=== PATIENT | female | born 1950 | race Caucasian/White ===

== ENCOUNTER 2018-08-09 13:51 | Observation (INO) | payer MEDICARE, OTHER ==
[2018-08-09] MEDS ORDERED: Sodium Chloride 0.9% 2.5 ML Syringe FLUSH PRN (14:05)
[2018-08-09] MEDS ORDERED: Sodium Chloride 0.9% 1,000 ML IV ONE (14:05)
[2018-08-09] MEDS ORDERED: Sodium Chloride 0.9% 10 ML Syringe FLUSH PRN (14:05)
[2018-08-09] MEDS ORDERED: Ondansetron 4 MG/2 ML SDV IVPUSH ONE (14:35)
--- NOTE | 2018-08-09 14:35 | EDM.PDOC ---
ED HPI GENERAL MEDICAL PROBLEM - General Chief Complaint: Gastrointestinal Problem Stated Complaint: VOMITING, DIARRHEA SINCE THIS AM Time Seen by Provider: 08/09/18 14:04 - History of Present Illness INITIAL COMMENTS - FREE TEXT/NARRATIVE: HISTORY AND PHYSICAL: History of present illness: Patient 68-year-old white female past medical history who is 5 days status post finishing a course of Augmentin for sinus infection presents now with uncontrollable vomiting and diarrhea 2 days no fever no chills she denies chest or abdominal pain. Review of systems: As per history of present illness and below otherwise all systems reviewed and negative. Past medical history: As per history of present illness and as reviewed below otherwise noncontributory. Surgical history: As per history of present illness and as reviewed below otherwise noncontributory. Social history: No reported history of drug or alcohol abuse. Family history: As per history of present illness and as reviewed below otherwise noncontributory. Physical exam: HEENT: Atraumatic, normocephalic, pupils reactive, negative for conjunctival pallor or scleral icterus, mucous membranes dry, throat clear, neck supple, nontender, trachea midline. Lungs: Clear to auscultation, breath sounds equal bilaterally, chest nontender. Heart: S1S2, regular, negative for clicks, rubs, or JVD. Abdomen: Soft, nondistended, no localized tenderness. Negative for masses or hepatosplenomegaly. Negative for costovertebral tenderness. Pelvis: Stable nontender. Genitourinary: Deferred. Rectal: Deferred. Extremities: Atraumatic, negative for cords or calf pain. Neurovascular unremarkable. Neuro: Awake, alert, oriented. Cranial nerves II through XII unremarkable. Cerebellum unremarkable. Motor and sensory unremarkable throughout. Exam nonfocal. Diagnostics: CBC CMP chest x-ray EKG UA stool for C&S O&P and C. difficile Therapeutics: Saline 1 L bolus Impression: 1 gastroenteritis with dehydration Definitive disposition and diagnosis as appropriate pending reevaluation and review of above. Abdomen Pain Score (Numeric/FACES): 7 - Related Data Allergies Allergy/AdvReac Type Severity Reaction Status Date / Time codeine Allergy Nausea Verified 08/09/18 14:08 Home Meds: Home Meds Calcium Carbonate/Vitamin D3 [Calcium 500 + Vit D 400] 1 tab PO DAILY 08/09/18 [ History] Cholecalciferol (Vitamin D3) [Vitamin D3] 1 tab PO DAILY 08/09/18 [History] Levothyroxine 1 tab PO DAILY 08/09/18 [History] Omeprazole 1 tab PO DAILY 08/09/18 [History] Rosuvastatin [Crestor] 10 mg PO DAILY 08/09/18 [History] Tamoxifen Citrate 20 mg PO DAILY 08/09/18 [History] Past Medical History Cardiovascular History: Reports: High Cholesterol Gastrointestinal History: Reports: GERD Endocrine/Metabolic History: Reports: Hypothyroidism Oncologic (Cancer) History: Reports: Breast, Leukemia - Infectious Disease History Infectious Disease History: Reports: Chicken Pox, Measles, Mumps Social & Family History - Tobacco Use Smoking Status *Q: Never Smoker - Caffeine Use Caffeine Use: Reports: Coffee - Recreational Drug Use Recreational Drug Use: No ED ROS GENERAL - Review of Systems Review Of Systems: ROS reveals no pertinent complaints other than HPI. ED EXAM, GENERAL - Physical Exam Exam: See Below (dictation) Course - Vital Signs Last Recorded V/S: Last Vital Signs Temp 35.5 C 08/09/18 14:03 Pulse 82 08/09/18 14:03 Resp 16 08/09/18 14:03 BP 128/80 08/09/18 14:03 Pulse Ox 96 08/09/18 14:03 - Orders/Labs/Meds Orders: Active Orders 24 hr Category Date Time Status EKG Documentation Completion [RC] STAT Care 08/09/18 14:05 Active Fecal Occult Blood Collection [RC] ASDIRECTED Care 08/09/18 14:04 Active CULTURE STOOL + CAMPY+SHIGATOX [RM] Stat Lab 08/09/18 14:34 Results UA RFX XIOMARA AND CULT IF INDIC [URIN] Stat Lab 08/09/18 14:04 Ordered Sodium Chloride 0.9% [Saline Flush] Med 08/09/18 14:05 Active 10 ml FLUSH ASDIRECTED PRN Sodium Chloride 0.9% [Saline Flush] Med 08/09/18 14:05 Active 2.5 ml FLUSH ASDIRECTED PRN Isolation [COMM] Stat Oth 08/09/18 14:05 Ordered Saline Lock Insert [OM.PC] Stat Oth 08/09/18 14:04 Ordered Medication Orders Sodium Chloride (Saline Flush) 10 ml FLUSH ASDIRECTED PRN PRN Reason: Keep Vein Open Last Admin: 08/09/18 14:30 Dose: 10 ml Sodium Chloride (Saline Flush) 2.5 ml FLUSH ASDIRECTED PRN PRN Reason: Keep Vein Open Last Admin: 08/09/18 14:31 Dose: 2.5 ml Labs: Laboratory Tests 08/09/18 08/09/18 Range/Units 14:14 14:14 WBC 12.16 H (4.0-11.0) K/uL RBC 4.45 (4.30-5.90) M/uL Hgb 13.5 (12.0-16.0) g/dL Hct 40.8 (36.0-46.0) % MCV 91.7 (80.0-98.0) fL MCH 30.3 (27.0-32.0) pg MCHC 33.1 (31.0-37.0) g/dL RDW Std Deviation 42.6 (28.0-62.0) fl RDW Coeff of Todd 13 (11.0-15.0) % Plt Count 226 (150-400) K/uL MPV 9.70 (7.40-12.00) fL Neut % (Auto) 86.8 H (48.0-80.0) % Lymph % (Auto) 5.9 L (16.0-40.0) % [place] % (Auto) 7.0 (0.0-15.0) % Eos % (Auto) 0.1 (0.0-7.0) % Baso % (Auto) 0.2 (0.0-1.5) % Neut # (Auto) 10.6 H (1.4-5.7) K/uL Lymph # (Auto) 0.7 (0.6-2.4) K/uL [place] # (Auto) 0.9 H (0.0-0.8) K/uL Eos # (Auto) 0.0 (0.0-0.7) K/uL Baso # (Auto) 0.0 (0.0-0.1) K/uL Nucleated RBC % 0.0 /100WBC Nucleated RBCs # 0 K/uL Sodium 141 (136-145) mmol/L Potassium 4.2 (3.5-5.1) mmol/L Chloride 104 (98-107) mmol/L Carbon Dioxide 24.2 (21.0-32.0) mmol/L BUN 21 H (7.0-18.0) mg/dL Creatinine 0.8 (0.6-1.0) mg/dL Est Cr Clr Drug Dosing 57.22 mL/min Estimated GFR (MDRD) > 60.0 ml/min Glucose 146 H (74-106) mg/dL Calcium 8.6 (8.5-10.1) mg/dL Total Bilirubin 0.4 (0.2-1.0) mg/dL AST 25 (15-37) IU/L ALT 28 (14-63) IU/L Alkaline Phosphatase 64 (46-116) U/L Total Protein 7.5 (6.4-8.2) g/dL Albumin 3.9 (3.4-5.0) g/dL Globulin 3.6 (2.6-4.0) g/dL Albumin/Globulin Ratio 1.1 (0.9-1.6) Meds: Medications Generic Name Dose Route Start Last Admin Trade Name Nellie PRN Reason Stop Dose Admin Sodium Chloride 10 ml 08/09/18 14:05 08/09/18 14:30 Saline Flush FLUSH 10 ml ASDIRECTED PRN Administration Keep Vein Open Sodium Chloride 2.5 ml 08/09/18 14:05 08/09/18 14:31 Saline Flush FLUSH 2.5 ml ASDIRECTED PRN Administration Keep Vein Open Discontinued Medications Generic Name Dose Route Start Last Admin Trade Name Nellie PRN Reason Stop Dose Admin Sodium Chloride 1,000 mls @ 999 mls/hr 08/09/18 14:05 08/09/18 14:31 Normal Saline IV 08/09/18 15:05 999 mls/hr STAT ONE Administration Ondansetron HCl 4 mg 08/09/18 14:35 08/09/18 14:48 Zofran IVPUSH 08/09/18 14:36 4 mg ONETIME ONE Administration Departure - Departure Time of Disposition: 15:25 Disposition: Refer to Observation Condition: Good Clinical Impression: Gastroenteritis, Dehydration - Discharge Information Referrals: PCP,None [Primary Care Provider] - Forms: ED Department Discharge - My Orders Last 24 Hours: My Active Orders 08/09/18 14:04 Fecal Occult Blood Collection [RC] ASDIRECTED UA RFX XIOMARA AND CULT IF INDIC [URIN] Stat Saline Lock Insert [OM.PC] Stat 08/09/18 14:05 EKG Documentation Completion [RC] STAT Sodium Chloride 0.9% [Saline Flush] 10 ml FLUSH ASDIRECTED PRN Sodium Chloride 0.9% [Saline Flush] 2.5 ml FLUSH ASDIRECTED PRN Isolation [COMM] Stat 08/09/18 14:34 CULTURE STOOL + CAMPY+SHIGATOX [RM] Stat - Assessment/Plan Last 24 Hours: My Active Orders 08/09/18 14:04 Fecal Occult Blood Collection [RC] ASDIRECTED UA RFX XIOMARA AND CULT IF INDIC [URIN] Stat Saline Lock Insert [OM.PC] Stat 08/09/18 14:05 EKG Documentation Completion [RC] STAT Sodium Chloride 0.9% [Saline Flush] 10 ml FLUSH ASDIRECTED PRN Sodium Chloride 0.9% [Saline Flush] 2.5 ml FLUSH ASDIRECTED PRN Isolation [COMM] Stat 08/09/18 14:34 CULTURE STOOL + CAMPY+SHIGATOX [RM] Stat
[2018-08-09 14:43] LABS: CHLORIDE,CL 104 mmol/L (98-107); SODIUM,NA 141 mmol/L (136-145)
--- NOTE | 2018-08-09 14:47 | CR ---
INDICATION: Pt w/dyspnea, vomiting, and diarrhea. COMPARISON: None. FINDINGS: Single portable AP view of the chest demonstrates adequate inflation of the lungs. There are few patchy densities at the left lung base, most likely atelectasis. No focal airspace consolidation, pneumothorax or effusion. Cardiomediastinal silhouette is unremarkable for an AP view. Surgical clips in the right axilla and breast. No acute osseous findings. IMPRESSION: Negative AP view of the chest. No acute findings. Dictated by Simone Baron MD @ 08/09/2018 2:45:23 PM Dictated by: Simone Baron MD @ 08/09/2018 14:45:53 (Electronically Signed)
[2018-08-09] MEDS ORDERED: Ondansetron 4 MG/2 ML SDV IVPUSH PRN (17:08)
[2018-08-09] MEDS: Sodium Chloride 0.9% 1,000 ML IV SCH (17:32)
[2018-08-09] MEDS: Rosuvastatin 10 MG Tab PO SCH (22:43)
[2018-08-09] MEDS: Calcium Carbonate/Vitamin D3 1500 MG-400 Units Tab PO SCH (22:43)
--- NOTE | 2018-08-09 23:08 | PCM.HP ---
H&P History of Present Illness - General Date of Service: 08/09/18 Admit Problem/Dx: Admission Diagnosis/Problem Admission Diagnosis/Problem Gastroenteritis - History of Present Illness Initial Comments - Free Text/Narative: 68 yo female who presents with two day history of nausea, vomiting and diarrhea. Patient reports multiple loose stools a day. She reports abdominal pain 4/10. She denies any fever or blood in her stool. She denies any sick contacts or eating anything unusual. She finished a course of Augment 5 days ago for sinusitis. Patient reports taking Advil for shoulder and rib pain. Abdomen Pain Score (Numeric/FACES): 6 - Related Data Allergies/Adverse Reactions: Allergies Allergy/AdvReac Type Severity Reaction Status Date / Time codeine Allergy Nausea Verified 08/09/18 14:08 Home Medications: Home Meds Calcium Carbonate/Vitamin D3 [Calcium 500 + Vit D 400] 1 tab PO TIDMEALS [History] Cholecalciferol (Vitamin D3) [Vitamin D3] 1 tab PO DAILY 08/09/18 [History] Levothyroxine 1 tab PO DAILY 08/09/18 [History] Omeprazole 1 tab PO DAILY 08/09/18 [History] Rosuvastatin [Crestor] 10 mg PO DAILY 08/09/18 [History] Tamoxifen Citrate 20 mg PO DAILY 08/09/18 [History] Past Medical History HEENT History: Reports: Sinusitis Cardiovascular History: Reports: High Cholesterol Gastrointestinal History: Reports: Chronic Constipation, GERD, Other (See Below) Other Gastrointestinal History: currently having nausea and diarrhea Genitourinary History: Reports: Urinary Incontinence Musculoskeletal History: Reports: Other (See Below) Other Musculoskeletal History: fractured rib over right side from June 2018 Endocrine/Metabolic History: Reports: Hypothyroidism Hematologic History: Reports: Other (See Below) 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 Oncologic (Cancer) History: Reports: Breast, Leukemia, Other (See Below) 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 Exam - Vital Signs Vital Signs: Last Vital Signs Temp 37.0 C 08/09/18 20:00 Pulse 75 08/09/18 20:00 Resp 18 08/09/18 20:00 BP 126/65 08/09/18 20:00 Pulse Ox 97 08/09/18 20:00 Weight: 66.48 kg - Exam General: Alert, Oriented HEENT: Mucosa Moist & [place] Lungs: Clear to Auscultation, Normal Respiratory Effort GI/Abdominal Exam: Soft, Non-Tender, No Distention, No Mass Skin: Warm, Dry, Intact Neurological: No: Focal Deficit Psychiatric: Alert, Normal Affect, Normal Mood - Patient Data Lab Results Last 24 hrs: Laboratory Results - last 24 hr 08/09/18 08/09/18 08/09/18 Range/Units 14:14 14:14 16:00 WBC 12.16 H (4.0-11.0) K/uL RBC 4.45 (4.30-5.90) M/uL Hgb 13.5 (12.0-16.0) g/dL Hct 40.8 (36.0-46.0) % MCV 91.7 (80.0-98.0) fL MCH 30.3 (27.0-32.0) pg MCHC 33.1 (31.0-37.0) g/dL RDW Std Deviation 42.6 (28.0-62.0) fl RDW Coeff of [place] 13 (11.0-15.0) % Plt Count 226 (150-400) K/uL MPV 9.70 (7.40-12.00) fL Neut % (Auto) 86.8 H (48.0-80.0) % Lymph % (Auto) 5.9 L (16.0-40.0) % [place] % (Auto) 7.0 (0.0-15.0) % Eos % (Auto) 0.1 (0.0-7.0) % Baso % (Auto) 0.2 (0.0-1.5) % Neut # (Auto) 10.6 H (1.4-5.7) K/uL Lymph # (Auto) 0.7 (0.6-2.4) K/uL [place] # (Auto) 0.9 H (0.0-0.8) K/uL Eos # (Auto) 0.0 (0.0-0.7) K/uL Baso # (Auto) 0.0 (0.0-0.1) K/uL Nucleated RBC % 0.0 /100WBC Nucleated RBCs # 0 K/uL Sodium 141 (136-145) mmol/L Potassium 4.2 (3.5-5.1) mmol/L Chloride 104 (98-107) mmol/L Carbon Dioxide 24.2 (21.0-32.0) mmol/L BUN 21 H (7.0-18.0) mg/dL Creatinine 0.8 (0.6-1.0) mg/dL Est Cr Clr Drug Dosing 57.22 mL/min Estimated GFR (MDRD) > 60.0 ml/min Glucose 146 H (74-106) mg/dL Calcium 8.6 (8.5-10.1) mg/dL Total Bilirubin 0.4 (0.2-1.0) mg/dL AST 25 (15-37) IU/L ALT 28 (14-63) IU/L Alkaline Phosphatase 64 (46-116) U/L Total Protein 7.5 (6.4-8.2) g/dL Albumin 3.9 (3.4-5.0) g/dL Globulin 3.6 (2.6-4.0) g/dL Albumin/Globulin Ratio 1.1 (0.9-1.6) Urine Color YELLOW Urine Appearance SLT CLOUDY Urine pH 6.5 (5.0-8.0) Ur Specific [place] 1.015 (1.001-1.035) Urine Protein NEGATIVE (NEGATIVE) mg/dL Urine Glucose (UA) NEGATIVE (NEGATIVE) mg/dL Urine Ketones NEGATIVE (NEGATIVE) mg/dL Urine Occult Blood TRACE-INTACT H (NEGATIVE) Urine Nitrite NEGATIVE (NEGATIVE) Urine Bilirubin NEGATIVE (NEGATIVE) Urine Urobilinogen 0.2 (<2.0) EU/dL Ur Leukocyte Esterase NEGATIVE (NEGATIVE) Urine RBC 0-3 (0-2/HPF) Urine WBC 0-1 (0-5/HPF) Ur Epithelial Cells FEW (NONE-FEW) Urine Bacteria FEW (NEGATIVE) Result Diagrams: 05/26/19 14:14 08/09/18 14:14 [place]vin Results Last 24 hrs: Microbiology 08/09/18 14:34 Clostridium difficile Toxin A & B - Final Stool / Feces Negative for C.Diff Toxin/AG REFERENCE RANGE: NEGATIVE 08/09/18 14:34 Campylobacter Antigen Assay - Final Stool / Feces NEGATIVE CAMPYLOBACTER AG REFERENCE RANGE: NEGATIVE Problem List Initiated/Reviewed/Updated: Yes Orders Last 24hrs: Active Orders 24 hr Category Date Time Status Patient Status [ADT] Stat ADT 08/09/18 15:27 Active Fecal Occult Blood Collection [RC] ASDIRECTED Care 08/09/18 14:04 Active Oxygen Therapy [RC] PRN Care 08/09/18 23:04 Ordered VTE/DVT Education [RC] PER UNIT ROUTINE Care 08/09/18 23:04 Ordered Vital Signs [RC] Q4H Care 08/09/18 23:04 Ordered Clear Liquid Diet [DIET] Diet 08/09/18 Dinner Active CBC WITH AUTO DIFF [HEME] AM Lab 08/10/18 05:11 Ordered COMPREHENSIVE METABOLIC PN,CMP [CHEM] AM Lab 08/10/18 05:11 Ordered CULTURE STOOL + CAMPY+SHIGATOX [RM] Stat Lab 08/09/18 14:34 Results Calcium Carbonate/Vitamin D3 [Caltrate 600+D 1500 MG- Med 08/09/18 22:30 Active 400 Units] 0.5 tab PO TIDMEALS Cholecalciferol (Vitamin D3) [Vitamin D3] Med 08/10/18 09:00 Active 4,000 units PO DAILY Levothyroxine Med 08/10/18 07:30 Active 75 mcg PO ACBREAKFAST Ondansetron [Zofran] Med 08/09/18 17:08 Active 4 mg IVPUSH Q4H PRN Pantoprazole [ProTONIX] Med 08/10/18 07:30 Active 40 mg PO ACBREAKFAST Rosuvastatin [Crestor] Med 08/09/18 22:30 Active 10 mg PO DAILY Sodium Chloride 0.9% [Normal Saline] 1,000 ml Med 08/09/18 17:08 Active IV ASDIRECTED Sodium Chloride 0.9% [Saline Flush] Med 08/09/18 14:05 Active 10 ml FLUSH ASDIRECTED PRN Sodium Chloride 0.9% [Saline Flush] Med 08/09/18 14:05 Active 2.5 ml FLUSH ASDIRECTED PRN Tamoxifen [Nolvadex] Med 08/10/18 09:00 Active 20 mg PO DAILY Isolation [COMM] Stat Ot 08/09/18 14:05 Ordered Saline Lock Insert [OM.PC] Stat Ot 08/09/18 14:04 Ordered Medication Orders Calcium Carbonate (Caltrate 600+D 1500 Mg-400 Units) 0.5 tab PO TIDMEALS [facility] Last Admin: 08/09/18 22:43 Dose: 0.5 tab Cholecalciferol (Vitamin D3) 4,000 units PO DAILY [facility] Sodium Chloride (Normal Saline) 1,000 mls @ 125 mls/hr IV ASDIRECTED [facility] Last Admin: 08/09/18 17:32 Dose: 125 mls/hr Levothyroxine Sodium (Levothyroxine) 75 mcg PO ACBREAKFAST [facility] Ondansetron HCl (Zofran) 4 mg IVPUSH Q4H PRN PRN Reason: Nausea Last Admin: 08/09/18 17:37 Dose: 4 mg Pantoprazole Sodium (Protonix) 40 mg PO ACBREAKFAST [facility] Rosuvastatin Calcium (Crestor) 10 mg PO DAILY [facility] Last Admin: 08/09/18 22:43 Dose: 10 mg Sodium Chloride (Saline Flush) 10 ml FLUSH ASDIRECTED PRN PRN Reason: Keep Vein Open Last Admin: 08/09/18 14:30 Dose: 10 ml Sodium Chloride (Saline Flush) 2.5 ml FLUSH ASDIRECTED PRN PRN Reason: Keep Vein Open Last Admin: 08/09/18 14:31 Dose: 2.5 ml Tamoxifen Citrate (Nolvadex) 20 mg PO DAILY [facility] Assessment/Plan Comment:: 68 yo female admitted for gastroenteritis. We will treat supportively with IV fluids and antiemetics. Stool studies have been ordered and are pending.
[2018-08-09] MEDS ORDERED: Pantoprazole 40 MG in Sodium Chloride 0.9% 100 ML IVPUSH ONE (23:30)
[2018-08-10] MEDS ORDERED: Pantoprazole 40 MG Vial ONE (00:04)
[2018-08-10] MEDS: Acetaminophen 325 MG Tab PO PRN ×2 (00:13→08:51)
[2018-08-10] MEDS ORDERED: Pantoprazole 40 MG in Sodium Chloride 0.9% 100 ML IVPUSH ONE ×4 (00:30)
[2018-08-10] MEDS ORDERED: Pantoprazole 40 MG Vial IVPUSH ONE (00:30)
[2018-08-10] MEDS: Sodium Chloride 0.9% 1,000 ML IV SCH ×2 (01:24→09:00)
[2018-08-10] MEDS ORDERED: Pantoprazole 40 MG Tab.CR PO SCH (07:30)
[2018-08-10] MEDS ORDERED: Levothyroxine 75 MCG Tab PO SCH (07:30)
[2018-08-10] MEDS: Rosuvastatin 10 MG Tab PO SCH (08:48)
[2018-08-10] MEDS: Calcium Carbonate/Vitamin D3 1500 MG-400 Units Tab PO SCH ×2 (08:49→12:05)
[2018-08-10] MEDS ORDERED: TAMOXIFEN 20 MG PO SCH (09:00)
[2018-08-10] MEDS ORDERED: Tamoxifen 10 MG Tab PO SCH ×2 (09:00)
[2018-08-10] MEDS ORDERED: Cholecalciferol (Vitamin D3) 1,000 Unit Tab PO SCH (09:00)
[2018-08-10] MEDS ORDERED: Acidophilus with Citrus Pectin Tab PO SCH (09:00)
--- NOTE | 2018-08-10 11:41 | PCM.PN ---
- General Info Date of Service: 08/10/18 Admission Dx/Problem (Free Text): Admission Diagnosis/Problem Admission Diagnosis/Problem Gastroenteritis Subjective Update: Feeling improved from when she arrived to ED. Had incontinent stool this morning. No chest pain or SOB. Nausea has improved. tolerating CL diet, nervous to increase diet. No abdominal pain, just mild discomfort. Functional Status: Reports: Pain Controlled, Tolerating Diet, Ambulating, Urinating - Review of Systems General: Reports: No Symptoms. Denies: Fever, Weakness, Fatigue HEENT: Reports: No Symptoms. Denies: Headaches, Sore Throat, Visual Changes Pulmonary: Reports: No Symptoms. Denies: Shortness of Breath Cardiovascular: Reports: No Symptoms. Denies: Chest Pain Gastrointestinal: Reports: Abdominal Pain (discomfort), Diarrhea. Denies: Nausea, Vomiting Genitourinary: Reports: No Symptoms. Denies: Dysuria, Frequency, Burning Musculoskeletal: Reports: Shoulder Pain (chronic) Skin: Reports: No Symptoms Neurological: Reports: No Symptoms Psychiatric: Reports: No Symptoms - Patient Data Vitals - Most Recent: Last Vital Signs Temp 97.9 F 08/10/18 07:59 Pulse 82 08/10/18 07:59 Resp 18 08/10/18 07:59 BP 134/75 08/10/18 07:59 Pulse Ox 95 08/10/18 07:59 Weight - Most Recent: 66.48 kg I&O - Last 24 Hours: Intake & Output 08/09/18 08/10/18 08/10/18 22:59 06:59 14:59 Intake Total 1726 470 Output Total 850 Balance 876 470 Lab Results Last 24 Hours: Laboratory Results - last 24 hr 08/09/18 08/09/18 08/09/18 Range/Units 14:14 14:14 16:00 WBC 12.16 H (4.0-11.0) K/uL RBC 4.45 (4.30-5.90) M/uL Hgb 13.5 (12.0-16.0) g/dL Hct 40.8 (36.0-46.0) % MCV 91.7 (80.0-98.0) fL MCH 30.3 (27.0-32.0) pg MCHC 33.1 (31.0-37.0) g/dL RDW Std Deviation 42.6 (28.0-62.0) fl RDW Coeff of Todd 13 (11.0-15.0) % Plt Count 226 (150-400) K/uL MPV 9.70 (7.40-12.00) fL Neut % (Auto) 86.8 H (48.0-80.0) % Lymph % (Auto) 5.9 L (16.0-40.0) % [place] % (Auto) 7.0 (0.0-15.0) % Eos % (Auto) 0.1 (0.0-7.0) % Baso % (Auto) 0.2 (0.0-1.5) % Neut # (Auto) 10.6 H (1.4-5.7) K/uL Lymph # (Auto) 0.7 (0.6-2.4) K/uL [place] # (Auto) 0.9 H (0.0-0.8) K/uL Eos # (Auto) 0.0 (0.0-0.7) K/uL Baso # (Auto) 0.0 (0.0-0.1) K/uL Nucleated RBC % 0.0 /100WBC Nucleated RBCs # 0 K/uL Sodium 141 (136-145) mmol/L Potassium 4.2 (3.5-5.1) mmol/L Chloride 104 (98-107) mmol/L Carbon Dioxide 24.2 (21.0-32.0) mmol/L BUN 21 H (7.0-18.0) mg/dL Creatinine 0.8 (0.6-1.0) mg/dL Est Cr Clr Drug Dosing 57.22 mL/min Estimated GFR (MDRD) > 60.0 ml/min Glucose 146 H (74-106) mg/dL Calcium 8.6 (8.5-10.1) mg/dL Total Bilirubin 0.4 (0.2-1.0) mg/dL AST 25 (15-37) IU/L ALT 28 (14-63) IU/L Alkaline Phosphatase 64 (46-116) U/L Total Protein 7.5 (6.4-8.2) g/dL Albumin 3.9 (3.4-5.0) g/dL Globulin 3.6 (2.6-4.0) g/dL Albumin/Globulin Ratio 1.1 (0.9-1.6) Urine Color YELLOW Urine Appearance SLT CLOUDY Urine pH 6.5 (5.0-8.0) Ur Specific [place] 1.015 (1.001-1.035) Urine Protein NEGATIVE (NEGATIVE) mg/dL Urine Glucose (UA) NEGATIVE (NEGATIVE) mg/dL Urine Ketones NEGATIVE (NEGATIVE) mg/dL Urine Occult Blood TRACE-INTACT H (NEGATIVE) Urine Nitrite NEGATIVE (NEGATIVE) Urine Bilirubin NEGATIVE (NEGATIVE) Urine Urobilinogen 0.2 (<2.0) EU/dL Ur Leukocyte Esterase NEGATIVE (NEGATIVE) Urine RBC 0-3 (0-2/HPF) Urine WBC 0-1 (0-5/HPF) Ur Epithelial Cells FEW (NONE-FEW) Urine Bacteria FEW (NEGATIVE) 08/10/18 08/10/18 Range/Units 05:40 05:40 WBC 6.08 (4.0-11.0) K/uL RBC 3.85 L (4.30-5.90) M/uL Hgb 11.6 L (12.0-16.0) g/dL Hct 35.6 L (36.0-46.0) % MCV 92.5 (80.0-98.0) fL MCH 30.1 (27.0-32.0) pg MCHC 32.6 (31.0-37.0) g/dL RDW Std Deviation 43.6 (28.0-62.0) fl RDW Coeff of Todd 13 (11.0-15.0) % Plt Count 231 (150-400) K/uL MPV 8.70 (7.40-12.00) fL Neut % (Auto) 76.3 (48.0-80.0) % Lymph % (Auto) 8.7 L (16.0-40.0) % [place] % (Auto) 14.5 (0.0-15.0) % Eos % (Auto) 0.5 (0.0-7.0) % Baso % (Auto) 0.0 (0.0-1.5) % Neut # (Auto) 4.6 (1.4-5.7) K/uL Lymph # (Auto) 0.5 L (0.6-2.4) K/uL [place] # (Auto) 0.9 H (0.0-0.8) K/uL Eos # (Auto) 0.0 (0.0-0.7) K/uL Baso # (Auto) 0.0 (0.0-0.1) K/uL Nucleated RBC % 0.0 /100WBC Nucleated RBCs # 0 K/uL Sodium 144 (136-145) mmol/L Potassium 3.8 (3.5-5.1) mmol/L Chloride 109 H (98-107) mmol/L Carbon Dioxide 24.8 (21.0-32.0) mmol/L BUN 14 (7.0-18.0) mg/dL Creatinine 1.0 (0.6-1.0) mg/dL Est Cr Clr Drug Dosing 45.78 mL/min Estimated GFR (MDRD) 55.5 ml/min Glucose 91 (74-106) mg/dL Calcium 7.9 L (8.5-10.1) mg/dL Total Bilirubin 0.3 (0.2-1.0) mg/dL AST 23 (15-37) IU/L ALT 29 (14-63) IU/L Alkaline Phosphatase 49 (46-116) U/L Total Protein 6.3 L (6.4-8.2) g/dL Albumin 3.0 L (3.4-5.0) g/dL Globulin 3.3 (2.6-4.0) g/dL Albumin/Globulin Ratio 0.9 (0.9-1.6) Urine Color Urine Appearance Urine pH (5.0-8.0) Ur Specific [place] (1.001-1.035) Urine Protein (NEGATIVE) mg/dL Urine Glucose (UA) (NEGATIVE) mg/dL Urine Ketones (NEGATIVE) mg/dL Urine Occult Blood (NEGATIVE) Urine Nitrite (NEGATIVE) Urine Bilirubin (NEGATIVE) Urine Urobilinogen (<2.0) EU/dL Ur Leukocyte Esterase (NEGATIVE) Urine RBC (0-2/HPF) Urine WBC (0-5/HPF) Ur Epithelial Cells (NONE-FEW) Urine Bacteria (NEGATIVE) Elvin Results Last 24 Hours: Microbiology 08/09/18 14:34 Campylobacter Antigen Assay - Final Stool / Feces NEGATIVE CAMPYLOBACTER AG REFERENCE RANGE: NEGATIVE Shiga Toxin I - Final NEGATIVE FOR SHIGA TOXIN 1 REFERENCE RANGE: NEGATIVE Shiga Toxin II - Final NEGATIVE FOR SHIGA TOXIN 2 REFERENCE RANGE: NEGATIVE 08/09/18 14:34 Clostridium difficile Toxin A & B - Final Stool / Feces Negative for C.Diff Toxin/AG REFERENCE RANGE: NEGATIVE Med Orders - Current: Current Medications Acetaminophen (Tylenol) 650 mg PO Q6H PRN PRN Reason: Pain Last Admin: 08/10/18 08:51 Dose: 650 mg Acidophilus/Pectin (Acidophilus/Pectin, Dare) 1 tab PO BID [facility] Last Admin: 08/10/18 08:50 Dose: 1 tab Calcium Carbonate (Caltrate 600+D 1500 Mg-400 Units) 0.5 tab PO TIDMEALS [facility] Last Admin: 08/10/18 08:49 Dose: 0.5 tab Cholecalciferol (Vitamin D3) 4,000 units PO DAILY [facility] Last Admin: 08/10/18 08:50 Dose: 4,000 units Sodium Chloride (Normal Saline) 1,000 mls @ 125 mls/hr IV ASDIRECTED [facility] Last Admin: 08/10/18 09:00 Dose: 125 mls/hr Levothyroxine Sodium (Levothyroxine) 75 mcg PO ACBREAKFAST [facility] Last Admin: 08/10/18 06:37 Dose: 75 mcg Ondansetron HCl (Zofran) 4 mg IVPUSH Q4H PRN PRN Reason: Nausea Last Admin: 08/09/18 17:37 Dose: 4 mg Pantoprazole Sodium (Protonix Iv) 40 mg IVPUSH Q24H [facility] Tamoxifen 20 Mg Tab 1 each PO DAILY [facility] Last Admin: 08/10/18 09:04 Dose: 1 each Rosuvastatin Calcium (Crestor) 10 mg PO DAILY [facility] Last Admin: 08/10/18 08:48 Dose: 10 mg Sodium Chloride (Saline Flush) 10 ml FLUSH ASDIRECTED PRN PRN Reason: Keep Vein Open Last Admin: 08/09/18 14:30 Dose: 10 ml Sodium Chloride (Saline Flush) 2.5 ml FLUSH ASDIRECTED PRN PRN Reason: Keep Vein Open Last Admin: 08/09/18 14:31 Dose: 2.5 ml Discontinued Medications Sodium Chloride (Normal Saline) 1,000 mls @ 999 mls/hr IV STAT ONE Stop: 08/09/18 15:05 Last Admin: 08/09/18 14:31 Dose: 999 mls/hr Pantoprazole Sodium 40 mg/ (Sodium Chloride) 100 mls @ 10 mls/hr IVPUSH ONETIME ONE Stop: 08/10/18 09:29 Last Admin: 08/10/18 07:43 Dose: Not Given Pantoprazole Sodium 40 mg/ (Sodium Chloride) 100 mls @ 10 mls/hr IVPUSH ONETIME ONE Stop: 08/10/18 10:29 Ondansetron HCl (Zofran) 4 mg IVPUSH ONETIME ONE Stop: 08/09/18 14:36 Last Admin: 08/09/18 14:48 Dose: 4 mg Pantoprazole Sodium (Protonix) 40 mg PO ACBREAKFAST [facility] Pantoprazole Sodium (Protonix Iv) Confirm Administered Dose 40 mg .ROUTE .STK -MED ONE Stop: 08/10/18 00:05 Last Admin: 08/10/18 00:13 Dose: 40 mg Pantoprazole Sodium (Protonix Iv) 40 mg IVPUSH Q24H ONE Stop: 08/10/18 00:31 Last Admin: 08/10/18 05:06 Dose: Not Given Tamoxifen 10 Mg Tab 2 each PO DAILY [facility] Tamoxifen Citrate (Nolvadex) 20 mg PO DAILY [facility] - Exam General: Alert, Oriented, Cooperative Lungs: Clear to Auscultation, Normal Respiratory Effort Cardiovascular: Regular Rate, Regular Rhythm, No Murmurs GI/Abdominal Exam: Normal Bowel Sounds, Soft, Tender (mild discomfort, but no overt pain.) Extremities: Normal Inspection, Normal Range of Motion, Non-Tender, No Pedal Edema Neurological: No New Focal Deficit Psy/Mental Status: Alert, Normal Affect, Normal Mood - Problem List & Annotations (1) Dehydration SNOMED Code(s): 16358527 Code(s): E86.0 - DEHYDRATION Status: Acute Current Visit: Yes (2) Gastroenteritis SNOMED Code(s): 70073420 Code(s): K52.9 - NONINFECTIVE GASTROENTERITIS AND COLITIS, UNSPECIFIED Status: Acute Current Visit: Yes - Problem List Review Problem List Initiated/Reviewed/Updated: Yes - My Orders Last 24 Hours: My Active Orders 08/10/18 08:31 CDIFF TOX A+B [OP] Routine 08/10/18 09:00 Acidophilus/Pectin, Dare 1 tab PO BID - Plan Plan:: 68 yo female admitted for gastroenteritis. 1. Gastroenteritis: Improving. Cdiff negative along with campylobacter and shigella. She is requesting to repeat the c diff. Continue IV fluids and antiemetics. Continues to have stools. Will repeat Cdiff today and if negative given Imodium. Likely diarrhea is from course of Augmentin. Probiotic started. Advance diet as tolerated. VTE prophylaxis: SCDs Dispo: Possible later today or in am.
[2018-08-10] MEDS ORDERED: Loperamide 2 MG Cap PO ONE (13:52)
[2018-08-10] MEDS ORDERED: Loperamide 2 MG Cap PO PRN (15:56)
--- NOTE | 2018-08-10 16:10 | PCM.DCSUM1 ---
Discharge Summary - Hospital Course Brief History: 68 yo female who presents with two day history of nausea, vomiting and diarrhea. Patient reports multiple loose stools a day. She reports abdominal pain /10. She denies any fever or blood in her stool. She denies any sick contacts or eating anything unusual. She finished a course of Augment 5 days ago for sinusitis. Patient reports taking Advil for shoulder and rib pain. Diagnosis: Stroke: No - Discharge Data Discharge Date: 08/10/18 Discharge Disposition: Home, Self-Care 01 Condition: Good - Discharge Diagnosis/Problem(s) (1) Dehydration SNOMED Code(s): 40966377 ICD Code: E86.0 - DEHYDRATION Status: Acute Current Visit: Yes (2) Gastroenteritis SNOMED Code(s): 30124861 ICD Code: K52.9 - NONINFECTIVE GASTROENTERITIS AND COLITIS, UNSPECIFIED Status: Acute Current Visit: Yes - Patient Instructions Diet: Drink 8-10+ Glasses/Day (josette add powerade, gatorade or pedialyte.), GI Soft/Low Residue/Low Fiber (for next few days then advance to regular.) Activity: As Tolerated Showering/Bathing: May Shower Notify Provider of: Fever, Increased Pain, Swelling and Redness, Drainage, Nausea and/or Vomiting - Discharge Plan *PRESCRIPTION DRUG MONITORING PROGRAM REVIEWED*: Not Applicable *COPY OF PRESCRIPTION DRUG MONITORING REPORT IN PATIENT THELMA: Not Applicable Prescriptions/Med Rec: Lactobacillus Acidophilus [Probiotic] 1 each PO DAILY #1 capsule Home Medications: Home Meds Calcium Carbonate/Vitamin D3 [Calcium 500 + Vit D 400] 1 tab PO TIDMEALS [History] Cholecalciferol (Vitamin D3) [Vitamin D3] 1 tab PO DAILY 08/09/18 [History] Levothyroxine 1 tab PO DAILY 08/09/18 [History] Omeprazole 1 tab PO DAILY 08/09/18 [History] Rosuvastatin [Crestor] 10 mg PO DAILY 08/09/18 [History] Tamoxifen Citrate 20 mg PO DAILY 08/09/18 [History] Lactobacillus Acidophilus [Probiotic] 1 each PO DAILY #1 capsule 08/10/18 [Rx] Loperamide [Imodium] 2 mg PO ASDIRECTED PRN cap 08/10/18 [Rx] Oxygen Therapy Mode: Room Air Referrals: PCP,None [Primary Care Provider] - (Follow up with primary care provider at home in 1 week to insure you are continuing to improve.) - Discharge Summary/Plan Comment DC Time >30 min.: No Discharge Summary/Plan Comment: Admitting Diagnoses: Nausea/Vomiting Diarrhea Dehydration Discharge Diagnoses: Diarrhea secondary to recent augmentin use Diamond was admitted and treated with IVFs and CL diet. Nausea went away after arriving to floor from ED and receiving Zofran. Diarrhea continued through the night but is somewhat improved through the day today. Cdiff came back negative x 2. Campylobacter and shigella negative as well. She took 2 doses of Imodium here and stools are improving. After discussing with her they would like to be discharged this evening. She is eating soft diet and tolerating that well. She was encouraged to keep diet soft and bland for next few days, increase water intake may even drink electrolye replacement drinks, such as Gatorade or Powerade. She is to return to the ED or clinic if concerns should arise. They plan on driving back to [place] ,in the morning. All questions and concerns addressed prior to discharge. - General Info Date of Service: 08/10/18 Admission Dx/Problem (Free Text: Admission Diagnosis/Problem Admission Diagnosis/Problem Gastroenteritis Subjective Update: Feeling better this afternoon, requesting discharge tonight. at bedside. Functional Status: Reports: Pain Controlled, Tolerating Diet, Ambulating, Urinating - Review of Systems General: Reports: No Symptoms. Denies: Fever, Weakness, Fatigue HEENT: Reports: No Symptoms Pulmonary: Reports: No Symptoms. Denies: Shortness of Breath Cardiovascular: Reports: No Symptoms. Denies: Chest Pain Gastrointestinal: Reports: Abdominal Pain (cramping intermittently), Diarrhea ( improving.). Denies: Nausea, Vomiting Genitourinary: Reports: No Symptoms Musculoskeletal: Reports: No Symptoms Skin: Reports: No Symptoms Neurological: Reports: No Symptoms Psychiatric: Reports: No Symptoms - Patient Data Vitals - Most Recent: Last Vital Signs Temp 98.7 F 08/10/18 12:00 Pulse 73 08/10/18 12:00 Resp 16 08/10/18 12:00 BP 128/66 08/10/18 12:00 Pulse Ox 94 L 08/10/18 12:00 Weight - Most Recent: 66.48 kg I&O - Last 24 hours: Intake & Output 08/10/18 08/10/18 08/10/18 06:59 14:59 22:59 Intake Total 1726 470 Output Total 850 Balance 876 470 Lab Results - Last 24 hrs: Laboratory Results - last 24 hr 08/09/18 08/10/18 08/10/18 Range/Units 16:00 05:40 05:40 WBC 6.08 (4.0-11.0) K/uL RBC 3.85 L (4.30-5.90) M/uL Hgb 11.6 L (12.0-16.0) g/dL Hct 35.6 L (36.0-46.0) % MCV 92.5 (80.0-98.0) fL MCH 30.1 (27.0-32.0) pg MCHC 32.6 (31.0-37.0) g/dL RDW Std Deviation 43.6 (28.0-62.0) fl RDW Coeff of Todd 13 (11.0-15.0) % Plt Count 231 (150-400) K/uL MPV 8.70 (7.40-12.00) fL Neut % (Auto) 76.3 (48.0-80.0) % Lymph % (Auto) 8.7 L (16.0-40.0) % [place] % (Auto) 14.5 (0.0-15.0) % Eos % (Auto) 0.5 (0.0-7.0) % Baso % (Auto) 0.0 (0.0-1.5) % Neut # (Auto) 4.6 (1.4-5.7) K/uL Lymph # (Auto) 0.5 L (0.6-2.4) K/uL [place] # (Auto) 0.9 H (0.0-0.8) K/uL Eos # (Auto) 0.0 (0.0-0.7) K/uL Baso # (Auto) 0.0 (0.0-0.1) K/uL Nucleated RBC % 0.0 /100WBC Nucleated RBCs # 0 K/uL Sodium 144 (136-145) mmol/L Potassium 3.8 (3.5-5.1) mmol/L Chloride 109 H (98-107) mmol/L Carbon Dioxide 24.8 (21.0-32.0) mmol/L BUN 14 (7.0-18.0) mg/dL Creatinine 1.0 (0.6-1.0) mg/dL Est Cr Clr Drug Dosing 45.78 mL/min Estimated GFR (MDRD) 55.5 ml/min Glucose 91 (74-106) mg/dL Calcium 7.9 L (8.5-10.1) mg/dL Total Bilirubin 0.3 (0.2-1.0) mg/dL AST 23 (15-37) IU/L ALT 29 (14-63) IU/L Alkaline Phosphatase 49 (46-116) U/L Total Protein 6.3 L (6.4-8.2) g/dL Albumin 3.0 L (3.4-5.0) g/dL Globulin 3.3 (2.6-4.0) g/dL Albumin/Globulin Ratio 0.9 (0.9-1.6) Urine Color YELLOW Urine Appearance SLT CLOUDY Urine pH 6.5 (5.0-8.0) Ur Specific [place] 1.015 (1.001-1.035) Urine Protein NEGATIVE (NEGATIVE) mg/dL Urine Glucose (UA) NEGATIVE (NEGATIVE) mg/dL Urine Ketones NEGATIVE (NEGATIVE) mg/dL Urine Occult Blood TRACE-INTACT H (NEGATIVE) Urine Nitrite NEGATIVE (NEGATIVE) Urine Bilirubin NEGATIVE (NEGATIVE) Urine Urobilinogen 0.2 (<2.0) EU/dL Ur Leukocyte Esterase NEGATIVE (NEGATIVE) Urine RBC 0-3 (0-2/HPF) Urine WBC 0-1 (0-5/HPF) Ur Epithelial Cells FEW (NONE-FEW) Urine Bacteria FEW (NEGATIVE) [id number] Results - Last 24 hrs: Microbiology 08/10/18 12:05 Clostridium difficile Toxin A & B - Final Stool / Feces Negative for C.Diff Toxin/AG REFERENCE RANGE: NEGATIVE 08/09/18 14:34 Campylobacter Antigen Assay - Final Stool / Feces NEGATIVE CAMPYLOBACTER AG REFERENCE RANGE: NEGATIVE Shiga Toxin I - Final NEGATIVE FOR SHIGA TOXIN 1 REFERENCE RANGE: NEGATIVE Shiga Toxin II - Final NEGATIVE FOR SHIGA TOXIN 2 REFERENCE RANGE: NEGATIVE 08/09/18 14:34 Clostridium difficile Toxin A & B - Final Stool / Feces Negative for C.Diff Toxin/AG REFERENCE RANGE: NEGATIVE Med Orders - Current: Current Medications Acetaminophen (Tylenol) 650 mg PO Q6H PRN PRN Reason: Pain Last Admin: 08/10/18 08:51 Dose: 650 mg Acidophilus/Pectin (Acidophilus/Pectin, [place]) 1 tab PO BID [facility] Last Admin: 08/10/18 08:50 Dose: 1 tab Calcium Carbonate (Caltrate 600+D 1500 Mg-400 Units) 0.5 tab PO TIDMEALS [facility] Last Admin: 08/10/18 12:05 Dose: 0.5 tab Cholecalciferol (Vitamin D3) 4,000 units PO DAILY [facility] Last Admin: 08/10/18 08:50 Dose: 4,000 units Sodium Chloride (Normal Saline) 1,000 mls @ 125 mls/hr IV ASDIRECTED [facility] Last Admin: 08/10/18 09:00 Dose: 125 mls/hr Pantoprazole Sodium 40 mg/ (Sodium Chloride) 10 mls @ 200 mls/hr IV Q24H [facility] Levothyroxine Sodium (Levothyroxine) 75 mcg PO ACBREAKFAST [facility] Last Admin: 08/10/18 06:37 Dose: 75 mcg Loperamide HCl (Imodium) 2 mg PO ASDIRECTED PRN PRN Reason: Diarrhea Ondansetron HCl (Zofran) 4 mg IVPUSH Q4H PRN PRN Reason: Nausea Last Admin: 08/09/18 17:37 Dose: 4 mg Tamoxifen 20 Mg Tab 1 each PO DAILY [facility] Last Admin: 08/10/18 09:04 Dose: 1 each Rosuvastatin Calcium (Crestor) 10 mg PO DAILY [facility] Last Admin: 08/10/18 08:48 Dose: 10 mg Sodium Chloride (Saline Flush) 10 ml FLUSH ASDIRECTED PRN PRN Reason: Keep Vein Open Last Admin: 08/09/18 14:30 Dose: 10 ml Sodium Chloride (Saline Flush) 2.5 ml FLUSH ASDIRECTED PRN PRN Reason: Keep Vein Open Last Admin: 08/09/18 14:31 Dose: 2.5 ml Discontinued Medications Sodium Chloride (Normal Saline) 1,000 mls @ 999 mls/hr IV STAT ONE Stop: 08/09/18 15:05 Last Admin: 08/09/18 14:31 Dose: 999 mls/hr Pantoprazole Sodium 40 mg/ (Sodium Chloride) 100 mls @ 10 mls/hr IVPUSH ONETIME ONE Stop: 08/10/18 09:29 Last Admin: 08/10/18 07:43 Dose: Not Given Pantoprazole Sodium 40 mg/ (Sodium Chloride) 100 mls @ 10 mls/hr IVPUSH ONETIME ONE Stop: 08/10/18 10:29 Loperamide HCl (Imodium) 4 mg PO ONETIME ONE Stop: 08/10/18 13:53 Last Admin: 08/10/18 14:07 Dose: 4 mg Ondansetron HCl (Zofran) 4 mg IVPUSH ONETIME ONE Stop: 08/09/18 14:36 Last Admin: 08/09/18 14:48 Dose: 4 mg Pantoprazole Sodium (Protonix) 40 mg PO ACBREAKFAST [facility] Pantoprazole Sodium (Protonix Iv) Confirm Administered Dose 40 mg .ROUTE .STK -MED ONE Stop: 08/10/18 00:05 Last Admin: 08/10/18 00:13 Dose: 40 mg Pantoprazole Sodium (Protonix Iv) 40 mg IVPUSH Q24H ONE Stop: 08/10/18 00:31 Last Admin: 08/10/18 05:06 Dose: Not Given Tamoxifen 10 Mg Tab 2 each PO DAILY [facility] Tamoxifen Citrate (Nolvadex) 20 mg PO DAILY [facility] - Exam General: Reports: Alert, Oriented, Cooperative Neck: Reports: Supple Lungs: Reports: Clear to Auscultation, Normal Respiratory Effort Cardiovascular: Reports: Regular Rate, Regular Rhythm GI/Abdominal Exam: Normal Bowel Sounds, Soft, Non-Tender Neurological: Reports: No New Focal Deficit Psy/Mental Status: Reports: Alert, Normal Affect, Normal Mood
[2018-08-10] MEDS ORDERED: Pantoprazole 40 MG in Sodium Chloride 0.9% 10 ML IV SCH (21:00)
[2018-08-10] MEDS ORDERED: Pantoprazole 40 MG Vial IVPUSH SCH (21:00)
[2018-08-10] MEDS ORDERED: Pantoprazole 40 MG in Sodium Chloride 0.9% 100 ML IVPUSH SCH (21:00)
== END 2018-08-10 17:00 | disposition home or self-care (01) ==
LOC: MW.ED 13:51 → MW.MS 15:34
PROVIDERS: ADMIT Internal Medicine; ATTEND Internal Medicine
DX: K52.9 Noninfective gastroenteritis and colitis, unspecified (principal); E86.0 Dehydration; K21.9 Gastro-esophageal reflux disease without esophagitis; E78.00 Pure hypercholesterolemia, unspecified; E03.9 Hypothyroidism, unspecified; Z79.899 Other long term (current) drug therapy; Z88.5 Allergy status to narcotic agent
CPT/HCPCS: 36415; 71045; 80053; 81001; 85025; 87046; 87324; 87899; 93005; 96361; 96374; 99285; A9270; C9113; J2405; J7040; 96376; 99283; G0378